=== PATIENT | male | born 1965 | race Caucasian/White ===

== ENCOUNTER 2020-07-29 09:45 | Emergency (ER) | payer SELFPAY ==
[2020-07-29 09:45] VITALS: BP 185/99; PULSE 87; RESP 14; TEMP 36.6; O2SAT 96; BMI 20.5
[2020-07-29 10:16] VITALS: BP 145/93
--- NOTE | 2020-07-29 10:31 | DI.RAD.S_ITS ---
PROCEDURE: XR CHEST 2V INDICATIONS: cough, short of breath--chronic TECHNIQUE: 2 views of the chest were acquired. COMPARISON: None. FINDINGS: Surgical changes and devices: None. Scattered subsegmental atelectasis and/or scarring. No focal consolidation. Mild increased right suprahilar/right upper lobe ill-defined opacity No pleural effusions or pneumothorax. Mediastinum: Mediastinal contours are normal. Heart size is normal. Bones and chest wall: No suspicious bony abnormalities. Soft tissues appear unremarkable. IMPRESSION: Scattered subsegmental atelectasis and/or scarring. No focal consolidation. Mildly increased , ill-defined opacity involving the right upper lobe/right suprahilar region which could reflect additional scarring/atelectasis although given the absence of prior studies recommend continued surveillance with chest radiographs in 3-6 months to exclude abnormal soft tissue/nodule. Dictated by: Denis Goode M.D. on 07/29/2020 at 10:53 Approved by: Denis Goode M.D. on 07/29/2020 at 10:55
--- NOTE | 2020-07-29 10:35 | ED_ITS ---
HPI - URI/Sore Throat <Pamela Coyle PA-C - Last Filed: 07/29/20 12:07> General Chief Complaint: Upper Respiratory Symptoms Stated Complaint: sinus/head swelling/infection x1 month Time Seen by Provider: 07/29/20 10:14 Source: patient Mode of arrival: Ambulatory Limitations: no limitations History of Present Illness HPI Narrative: This slightly tired appearing 54-year-old gentleman long-time smoker who reports no known history, no medications but has not seen a doctor in over 10 years--who presents stating that he has been having sinus pressure headaches and thick green mucus production from his nose for the past month. The pain in his face has worsened over the last couple of days so he decided to come to the doctor. He has been treating it based on his daughter's recommenda tion with colloidal silver. He has not done any other treatments. He also reports that he was sick last winter never went to the doctor but was very under the weather for a few weeks, with fatigue and shortness of breath and ever since that time he has been short of breath with exertion. He reports he is about a pack-a-day smoker. He can not smell or taste anything so he feels like he has had less appetite recently. The last few nights he has been feeling chills. He has a mild cough which he has associated with being a smoker he feels it has been a little bit worse recently although he does not think he has had productive sputum. He denies fevers, dyspnea at rest, abdominal pain, nausea, vomiting, diarrhea flank pain, dysuria or any other symptoms MD Complaint: cough, nasal congestion and sinus pain Onset (ago): month(s) (1) Duration: constant and progressively worsening Severity: moderate Severity scale (1-10): 5 Relieving factors: nothing Exacerbating factors: nothing Description of mucous: green and purulent Able to tolerate fluids by mouth: Yes Associated symptoms: chills (Last 2 days), nasal congestion, cough (Chronic c ough due to smoking but worsening cough recently) and shortness of breath (Shortness of breath with exertion for the past year not acutely worsened) Related Data Previous Rx's Medication Instructions Recorded amoxicillin-pot clavulanate 1 tab PO BID 7 Days #14 tab 07/29/20 [Augmentin] Allergies Allergy/AdvReac Type Severity Reaction Status Date / Time No Known Drug Allergies Allergy Verified 07/29/20 09:51 Review of Systems <Pamela Coyle PA-C - Last Filed: 07/29/20 12:07> Review of Systems Narrative: GENERAL: Endorses chills, denies fatigue, malaise, fever, sweats. HEENT: Endorses sinus pain, denies ear pain, sore throat, difficulty swallowing, dizziness. RESPIRATORY: Endorses chronic dyspnea with exertion unchanged, chronic cough worse recently, denies wheezing, hemoptysis, sputum. CARDIOVASCULAR: Denies chest pain, palpitations, orthopnea, edema, GASTROINTESTINAL: Denies nausea, vomiting, abdominal pain, diarrhea, constipation, melena. : Denies dysuria, frequency, incontinence, hematuria, urinary retention. MUSCULOSKELETAL: denies weakness, joint pain, or bony pain SKIN: Denies rash, skin lesions, or other NEUROLOGIC: Denies weakness, headache, numbness, change in speech, confusion, seizures, incoordination. PSYCHIATRIC: No concerning psychosocial issues. 12 point review of systems is negative except for those stated above ROS Unobtainable: All systems reviewed & are unremarkable except as noted in HPI and below Patient History <Pamela Coyle PA-C - Last Filed: 07/29/20 12:07> Social History Smoking Status: Current every day smoker (About a pack a day) Smoking Status: Current every day smoker (About a pack a day) tobacco type: cigarettes alcohol intake frequency: holidays/special occasions only Substance Use Type: does not use Exam <Pamela Coyle PA-C - Last Filed: 07/29/20 12:07> Narrative Exam Narrative: GENERAL: 54 year old patient slim appearing, appears stated age. Well-nourished, well-developed patient, in mild distress. HEAD: Atraumatic. Normocephalic. EYES: Pupils equal round and reactive. Extraocular motions intact. No scleral icterus. No injection or drainage. ENT: Nose without bleeding, purulent drainage. Throat with mild erythema of the tonsillar pillar, no tonsillar hypertrophy or exudate. Airway patent. NECK: Trachea midline. Non tender. Bilateral lymphadenopathy tonsillar slightly tender CARDIOVASCULAR: Regular rate and rhythm without murmurs, gallops, or rubs. RESPIRATORY: Upper rivera are clear reduced air movement in lower rivera bilaterally, left lower field with rub. No wheezes, rales, or rhonchi. GASTROINTESTINAL: Abdomen soft, non-tender, nondistended. EXTREMITIES: No edema or joint tenderness. BACK: Nontender without deformity or crepitance. No flank tenderness. NEURO: AOx3. SKIN: No rash or erythema of visible areas Initial Vital Signs Initial Vital Signs: Vital Signs Temperature 97.9 F 07/29/20 09:45 Pulse Rate 87 07/29/20 09:45 Respiratory Rate 14 07/29/20 09:45 Blood Pressure 185/99 H 07/29/20 09:45 Pulse Oximetry 96 07/29/20 09:45 <Hina Brewer DO - Last Filed: 07/29/20 19:02> Initial Vital Signs Initial Vital Signs: Vital Signs Temperature 97.9 F 07/29/20 09:45 Pulse Rate 87 07/29/20 09:45 Respiratory Rate 14 07/29/20 09:45 Blood Pressure 185/99 H 07/29/20 09:45 Pulse Oximetry 96 07/29/20 09:45 Scores <Pamela Coyle PA-C - Last Filed: 07/29/20 12:07> GCS [place] coma scale eye opening: Spontaneous [place] coma scale verbal response: Orientated [place] coma scale motor response: Obey commands [place] coma scale total score: 15 Course <PHUC Aguilar Last Filed: 07/29/20 12:07> Orders Ordered: ED Orders 07/29/20 10:31 XR chest 2V Stat 07/29/20 10:36 COVID19 Stat 07/29/20 10:50 Complete Blood Count AUTO DIFF Stat Comprehensive Metabolic Panel Stat NT-proBNP (BNP-Adult 18+) Stat Procalcitonin Stat Vital Signs Vital signs: Vital Signs - 8 hr 07/29/20 09:45 07/29/20 10:16 Temperature 97.9 F Pulse Rate 87 Respiratory Rate 14 Blood Pressure 185/99 H 145/93 H Pulse Oximetry 96 <Hina Brewer DO - Last Filed: 07/29/20 19:02> Orders Ordered: ED Orders 07/29/20 10:31 XR chest 2V Stat 07/29/20 10:36 COVID19 Stat 07/29/20 10:50 Complete Blood Count AUTO DIFF Stat Comprehensive Metabolic Panel Stat NT-proBNP (BNP-Adult 18+) Stat Procalcitonin Stat Vital Signs Vital signs: Vital Signs - 8 hr 07/29/20 09:45 07/29/20 10:16 Temperature 97.9 F Pulse Rate 87 Respiratory Rate 14 Blood Pressure 185/99 H 145/93 H Pulse Oximetry 96 MDM - URI/Sore Throat <Pamela Coyle PA-C - Last Filed: 07/29/20 12:07> Differential Diagnosis Differential diagnosis: Likely upper respiratory infection, sinusitis, viral infection, bronchitis and other (COVID, bacterial sinusitis, pneumonia, unstable angina) Medical Records Attestation: I reviewed the patient's medical records. Medical records narrative: No records in our system patient reports he has not seen a doctor in over 10 years Lab Data Result diagrams: 07/29/20 10:50 07/29/20 10:50 Labs: Lab Results 07/29/20 07/29/20 07/29/20 Range/Units 10:36 10:50 10:50 WBC 12.1 H (4.5-11.0) X10^3/uL RBC 5.03 (4.5-5.9) X10^6/uL Hgb 14.8 (13.5-17.5) g/dL Hct 45.6 (41-53) % MCV 90.6 (80-100) fL MCH 29.5 (26-34) PG MCHC 32.6 (30-36) % RDW 12.9 (11.6-14.8) % Plt Count 328 (150-400) X10^3/uL Neut % (Auto) 76.6 H (50-75) % Lymph % (Auto) 13.7 L (25-40) % Schuyler % (Auto) 8.7 (3-14) % Eos % (Auto) 0.6 L (2-4) % Baso % (Auto) 0.4 (0-2) % Neut # (Auto) 9300 H (5789-5281) /uL Lymph # (Auto) 1700 (9968-0362) /uL [place]yler # (Auto) 1100 H (0-900) /uL Eos # (Auto) 100 (0-450) /uL Baso # (Auto) 0 (0-100) /uL Sodium 138 (137-145) mmol/L Potassium 4.9 (3.4-5.1) mmol/L Chloride 100 (98-107) mmol/L Carbon Dioxide 36 H (22-32) mmol/L BUN 15 (9-20) mg/dL Creatinine 0.69 (0.66-1.25) mg/dL Estimated GFR > 60.0 (>60) mL/min BUN/Creatinine Ratio 21.7 (6-22) Glucose 111 H (70-100) mg/dL Calcium 9.8 (8.4-10.2) mg/dL Total Bilirubin 0.5 (0.2-1.3) mg/dL AST 21 (17-59) IU/L ALT 20 (<50) IU/L Alkaline Phosphatase 83 (38-126) U/L NT-Pro-B Natriuret Pep 39 (<125) pg/mL Total Protein 7.8 (6.3-8.2) g/dL Albumin 4.5 (3.5-5.0) g/dL Globulin 3.3 (1.7-4.1) g/dL Albumin/Globulin Ratio 1.4 (1.0-2.8) Procalcitonin (<0.5) ng/mL SARS-CoV-2 (PCR) Negative (Negative) 07/29/20 Range/Units 10:50 WBC (4.5-11.0) X10^3/uL RBC (4.5-5.9) X10^6/uL Hgb (13.5-17.5) g/dL Hct (41-53) % MCV (80-100) fL MCH (26-34) PG MCHC (30-36) % RDW (11.6-14.8) % Plt Count (150-400) X10^3/uL Neut % (Auto) (50-75) % Lymph % (Auto) (25-40) % Schuyler % (Auto) (3-14) % Eos % (Auto) (2-4) % Baso % (Auto) (0-2) % Neut # (Auto) (0738-1318) /uL Lymph # (Auto) (6642-9936) /uL Schuyler # (Auto) (0-900) /uL Eos # (Auto) (0-450) /uL Baso # (Auto) (0-100) /uL Sodium (137-145) mmol/L Potassium (3.4-5.1) mmol/L Chloride (98-107) mmol/L Carbon Dioxide (22-32) mmol/L BUN (9-20) mg/dL Creatinine (0.66-1.25) mg/dL Estimated GFR (>60) mL/min BUN/Creatinine Ratio (6-22) Glucose (70-100) mg/dL Calcium (8.4-10.2) mg/dL Total Bilirubin (0.2-1.3) mg/dL AST (17-59) IU/L ALT (<50) IU/L Alkaline Phosphatase (38-126) U/L NT-Pro-B Natriuret Pep (<125) pg/mL Total Protein (6.3-8.2) g/dL Albumin (3.5-5.0) g/dL Globulin (1.7-4.1) g/dL Albumin/Globulin Ratio (1.0-2.8) Procalcitonin < 0.05 (<0.5) ng/mL SARS-CoV-2 (PCR) (Negative) Imaging Data Chest x-ray: Attestation: I personally reviewed and interpreted this imaging study as follows: Radiologist's Impression: [address] [id number] ReportSigned Patient: Merlin Sargent AMR#: [id number]: 1965Acct:[id number]/Sex: 54 / MDate of Service: 07/29/20Loc: EDAccession Number: [id number] Procedure: XR chest 2V Ordering Provider: Pamela Coyle P.A-C PROCEDURE: XR CHEST 2V INDICATIONS: cough, short of breath--chronic TECHNIQUE: 2 views of the chest were acquired. COMPARISON: None. FINDINGS: Surgical changes and devices: None. Scattered subsegmental atelectasis and/or scarring. No focal consolidation. Mild increased right suprahilar/right upper lobe ill-defined opacity No pleural effusions or pneumothorax. Mediastinum: Mediastinal contours are normal. Heart size is normal. Bones and chest wall: No suspicious bony abnormalities. Soft tissues appear unremarkable. IMPRESSION: Scattered subsegmental atelectasis and/or scarring. No focal consolidation. Mildly increased , ill-defined opacity involving the right upper lobe/right suprahilar region which could reflect additional scarring/atelectasis although given the absence of prior studies recommend continued surveillance with chest radiographs in 3-6 months to exclude abnormal soft tissue/nodule. Dictated by: Denis Goode M.D. on 07/29/2020 at 10:53 Approved by: Denis Goode M.D. on 07/29/2020 at 10:55 [facility] Narrative Medical decision making narrative: This is a somewhat tired appearing 54-year-old everyday smoker who reports no medical history but has had no medical care in 10 years who presents complaining of headache and sinus infection symptoms for 1 month worsening in the last few days also reports chronic shortness of breath with exertion for the past year, chronic cough worsened recently. Exam and history is consistent with a bacterial sinusitis, however additionally some concern for pneumonia based on his lung exam worsening cough and known upper respiratory infection that has been prolonged. Also labs ordered based on his report of shortness of breath with exertion, chest x-ray for evaluation as well. Labs returned with a very mild leukocytosis, COVID is negative, BNP is unremarkable, chest x-ray does show some atelectasis and scarring with no evidence of pneumonia or other acute cardiopulmonary process and there is also note of a opacity in the right upper lobe that possibly represents scarring atelectasis versus pulmonary nodule with recommendation for follow-up in 3-6 months for repeat radiography. Planning to treat this patient with antibiotics for his now 4-week-old sinus infection. Mild leukocytosis is likely due to this. Advising the patient regarding establishing a primary care provider follow-up plan discussed, emergency return precautions provided <Hina Brewer, DO - Last Filed: 07/29/20 19:02> Lab Data Labs: Lab Results 07/29/20 07/29/20 07/29/20 Range/Units 10:36 10:50 10:50 WBC 12.1 H (4.5-11.0) X10^3/uL RBC 5.03 (4.5-5.9) X10^6/uL Hgb 14.8 (13.5-17.5) g/dL Hct 45.6 (41-53) % MCV 90.6 (80-100) fL MCH 29.5 (26-34) PG MCHC 32.6 (30-36) % RDW 12.9 (11.6-14.8) % Plt Count 328 (150-400) X10^3/uL Neut % (Auto) 76.6 H (50-75) % Lymph % (Auto) 13.7 L (25-40) % Schuyler % (Auto) 8.7 (3-14) % Eos % (Auto) 0.6 L (2-4) % Baso % (Auto) 0.4 (0-2) % Neut # (Auto) 9300 H (2036-6419) /uL Lymph # (Auto) 1700 (9614-2476) /uL [place] # (Auto) 1100 H (0-900) /uL Eos # (Auto) 100 (0-450) /uL Baso # (Auto) 0 (0-100) /uL Sodium 138 (137-145) mmol/L Potassium 4.9 (3.4-5.1) mmol/L Chloride 100 (98-107) mmol/L Carbon Dioxide 36 H (22-32) mmol/L BUN 15 (9-20) mg/dL Creatinine 0.69 (0.66-1.25) mg/dL Estimated GFR > 60.0 (>60) mL/min BUN/Creatinine Ratio 21.7 (6-22) Glucose 111 H (70-100) mg/dL Calcium 9.8 (8.4-10.2) mg/dL Total Bilirubin 0.5 (0.2-1.3) mg/dL AST 21 (17-59) IU/L ALT 20 (<50) IU/L Alkaline Phosphatase 83 (38-126) U/L NT-Pro-B Natriuret Pep 39 (<125) pg/mL Total Protein 7.8 (6.3-8.2) g/dL Albumin 4.5 (3.5-5.0) g/dL Globulin 3.3 (1.7-4.1) g/dL Albumin/Globulin Ratio 1.4 (1.0-2.8) Procalcitonin (<0.5) ng/mL SARS-CoV-2 (PCR) Negative (Negative) 07/29/20 Range/Units 10:50 WBC (4.5-11.0) X10^3/uL RBC (4.5-5.9) X10^6/uL Hgb (13.5-17.5) g/dL Hct (41-53) % MCV (80-100) fL MCH (26-34) PG MCHC (30-36) % RDW (11.6-14.8) % Plt Count (150-400) X10^3/uL Neut % (Auto) (50-75) % Lymph % (Auto) (25-40) % [place]yler % (Auto) (3-14) % Eos % (Auto) (2-4) % Baso % (Auto) (0-2) % Neut # (Auto) (3997-6874) /uL Lymph # (Auto) (7456-1460) /uL Schuyler # (Auto) (0-900) /uL Eos # (Auto) (0-450) /uL Baso # (Auto) (0-100) /uL Sodium (137-145) mmol/L Potassium (3.4-5.1) mmol/L Chloride (98-107) mmol/L Carbon Dioxide (22-32) mmol/L BUN (9-20) mg/dL Creatinine (0.66-1.25) mg/dL Estimated GFR (>60) mL/min BUN/Creatinine Ratio (6-22) Glucose (70-100) mg/dL Calcium (8.4-10.2) mg/dL Total Bilirubin (0.2-1.3) mg/dL AST (17-59) IU/L ALT (<50) IU/L Alkaline Phosphatase (38-126) U/L NT-Pro-B Natriuret Pep (<125) pg/mL Total Protein (6.3-8.2) g/dL Albumin (3.5-5.0) g/dL Globulin (1.7-4.1) g/dL Albumin/Globulin Ratio (1.0-2.8) Procalcitonin < 0.05 (<0.5) ng/mL SARS-CoV-2 (PCR) (Negative) Discharge Plan Departure Patient Disposition: Home Clinical Impression: Acute bacterial sinusitis Instructions: DI for Sinusitis Activity Restrictions/Additional Instructions: Thank you for letting us be part of your care in the emergency department today. Your exam was consistent with a bacterial sinusitis and you do need antibiotics to treat this appropriately. I also recommend you consider doing sinus rinses you can buy sinus rinse products in most pharmacies. I prescribed antibiotics please take the entire course even if your feeling better. Sometimes antibiotics can give people and upset stomach or loose stools you may want to consider eating yogurt while you are taking them to help prevent this. Your chest x-ray returned without any evidence of pneumonia or other acute cardiopulmonary process you do have some scarring in your lung tissue, there was also note made of a opacity in your right upper lobe that could possibly represent a pulmonary nodule and this should be followed up with with additional radiology in the next 3-6 months. Also with you reporting feeling short of breath with exertion for the past year I strongly recommend that you work on establishing a primary care provider and as we discussed you probably should have pulmonary function testing done for further evaluation. I recommend you take Tylenol and ibuprofen for new or sinus headaches. I have included information on the [facility] resources team you can reach out to them regarding setting up a primary care provider locally here they may also be able to help you with providers closer to home. The labs that we checked today all returned looking okay. But based on your symptoms and your smoking history you could possibly have early emphysema or restrictive lung disease, it is also important to note that sometimes feeling short of breath can actually be related to heart conditions again this is another reason why it is important to establish care with a primary care provider and start being seen more regularly for evaluation of symptoms like this. There is no evidence of an emergent or life threatening illness at this time, but follow up with your doctor in 1-2 days is recommended nonetheless to continue to rule out serious underlying causes of your symptoms. Please call the office for an appointment. Please return to the Emergency Department for any worsening or persistent symptoms. Please take medications as directed. Prescriptions: New amoxicillin-pot clavulanate [Augmentin] 875-125 mg tablet 1 tab PO BID 7 Days Qty: 14 RF: 0 Referrals: [facility] [Outside] <Hina Brewer DO - Last Filed: 07/29/20 19:02> [facility] Attestation: I was immediately available in the department for consultation. Documentation has been reviewed.
[2020-07-29 11:00] LABS: Add Manual Diff / Slide Review NO; Basophils Absolute Auto 0 /uL (0-100); Basophils Percent Auto 0.4 % (0-2); Eosinophils Absolute Auto 100 /uL (0-450); Eosinophils Percent Auto 0.6 % (2-4); Hematocrit 45.6 % (41-53); Hemoglobin 14.8 g/dL (13.5-17.5); Lymphocytes Absolute Auto 1700 /uL (1100-4500); Lymphocytes Percent Auto 13.7 % (25-40); Mean Corpuscular HGB Conc 32.6 % (30-36); Mean Corpuscular Hemoglobin 29.5 PG (26-34); Mean Corpuscular Volume 90.6 fL (80-100); Monocytes Absolute Auto 1100 /uL (0-900); Monocytes Percent Auto 8.7 % (3-14); Neutrophils Absolute Auto 9300 /uL (1500-7000); Neutrophils Percent Auto 76.6 % (50-75); Platelet Count 328 X10^3/uL (150-400); Red Blood Cell Count 5.03 X10^6/uL (4.5-5.9); Red Cell Distribution Width 12.9 % (11.6-14.8); White Blood Cell Count 12.1 X10^3/uL (4.5-11.0)
[2020-07-29 11:09] LABS: COVID19 -Nasal RAPID Negative (Negative)
[2020-07-29 11:14] LABS: Alanine Aminotransferase 20 IU/L (<50); Albumin 4.5 g/dL (3.5-5.0); Albumin Globulin Ratio 1.4 (1.0-2.8); Alkaline Phosphatase 83 U/L (38-126); Aspartate Aminotransferase 21 IU/L (17-59); BUN Creatinine Ratio 21.7 (6-22); Bilirubin Total 0.5 mg/dL (0.2-1.3); Blood Urea Nitrogen 15 mg/dL (9-20); Calcium 9.8 mg/dL (8.4-10.2); Carbon Dioxide 36 mmol/L (22-32); Chloride 100 mmol/L (98-107); Estimated Glomerular Filt Rate > 60.0 mL/min (>60); Globulin 3.3 g/dL (1.7-4.1); Glucose 111 mg/dL (70-100); HEMOLYSIS < 15 (0-50); Potassium 4.9 mmol/L (3.4-5.1); Sodium 138 mmol/L (137-145); Total Protein 7.8 g/dL (6.3-8.2)
[2020-07-29 11:25] LABS: NT-proBNP (BNP-Adult 18+) 39 pg/mL (<125)
[2020-07-29 12:00] LABS: Procalcitonin < 0.05 ng/mL (<0.5)
== END 2020-07-29 12:04 | disposition home or self-care (01) ==
PROVIDERS: Emergency Provider Student in an Organized Health Care Education/Training Program
DX: J01.90 Acute sinusitis, unspecified (principal); R05 Cough; R06.02 Shortness of breath; Z20.822 Contact with and (suspected) exposure to COVID-19
CPT/HCPCS: 36415; 71046; 80053; 83880; 84145; 85025; 87635; 99284; C9803